=== PATIENT | male | born 1960 | race Caucasian/White ===

== ENCOUNTER → 2018-03-26 | Outpatient (CLI) | payer MEDICARE | END | disposition home or self-care (01) | LOC: RADUSWWP 12:58 | PROVIDERS: ATTEND Family Medicine | DX: I73.9 Peripheral vascular disease, unspecified (principal) | CPT/HCPCS: 93923 ==

== ENCOUNTER 2019-03-25 11:50 | Emergency (ER) | payer MEDICARE ==
[2019-03-25] MEDS ORDERED: SODIUM CHLORIDE 0.9% 500 ML 500 ML IV STA (12:28)
--- NOTE | 2019-03-25 12:42 | ED ---
Weakness HPI <YonathanHenrik - Last Filed: 03/25/19 15:41> - General Source: patient, RN notes reviewed Mode of arrival: ambulatory Limitations: no limitations <Trevor Reynoso - Last Filed: 03/25/19 19:35> - General Chief complaint: Weakness Stated complaint: pneumonia Time Seen by Provider: 03/25/19 11:59 - History of Present Illness Initial comments: This a 59-year-old male presents emergency Department with chief complaint of denies weakness, shortness of breath. Patient states he has not felt well over last several weeks. Patient has been to his PCP several times has been placed on antibiotics 3 times and Lasix. Patient states he notices a gurgling sound especially when he lays down, he gets increasing shortness of breath. Patient had approximately 20 pound weight gain or 11 days. States is very dyspneic when he is walking. Patient states the Lasix did help but he states he still feels worse now. Patient states he does drink a couple beers daily but does not abuse alcohol. Does not have any excessive Tylenol use. Patient denies any history of liver disease. Patient denies any prior kidney dysfunction. Patient is having trouble bypass aortic graft. Patient states she's had on-and-off fevers. Patient states that currently is taking Levaquin. Patient states is another Xanax prior to that and he also had some injections. (Trevor Reynoso) - Related Data Home Medications Medication Instructions Recorded Confirmed ALPRAZolam [Xanax] 1 mg PO BID 03/25/19 03/25/19 Albuterol Sulfate [Ventolin HFA] 2 puff INHALATION RT-Q4H 03/25/19 03/25/19 Amoxicillin 875 mg PO DIRECTED 03/25/19 03/25/19 Aspirin 81 mg PO DAILY 03/25/19 03/25/19 Atorvastatin [Lipitor] 40 mg PO HS 03/25/19 03/25/19 Budesonide-Formot 160-4.5 Mcg 2 puff INHALATION RT-BID 03/25/19 03/25/19 [Symbicort 160-4.5 Mcg Inhaler] Cholecalciferol [Vitamin D3 (25 1,000 unit PO DAILY 03/25/19 03/25/19 Mcg = 1000 Iu)] Depo-Medrol 160 mg IM ONCE 03/25/19 03/25/19 Doxycycline [Vibramycin] 100 mg PO DIRECTED 03/25/19 03/25/19 Fluconazole [Diflucan] 150 mg PO ONCE 03/25/19 03/25/19 Fluticasone/Umeclidin/Vilanter 1 puff INHALATION RT-DAILY 03/25/19 03/25/19 [Trelegy Ellipta 100-62.5-25] Furosemide [Lasix] 40 mg PO DIRECTED 03/25/19 03/25/19 Glimepiride [Amaryl] 2 mg PO DAILY 03/25/19 03/25/19 Hydrocodone/Acetaminophen [[place] 1 tab PO Q6H PRN 03/25/19 03/25/19 10-325] Levofloxacin [Levaquin] 500 mg PO DIRECTED 03/25/19 03/25/19 Multivitamins, Thera [Multivitamin 1 tab PO DAILY 03/25/19 03/25/19 (formulary)] Nitroglycerin Sl Tabs [Nitrostat] 0.4 mg SUBLINGUAL Q5M PRN 03/25/19 03/25/19 Nystatin 100,000Unit/gm Cream 1 applic TOPICAL BID 03/25/19 03/25/19 [Mycostatin Cream] [place]-3 Fatty Acids/Fish Oil [Fish 1 cap PO DAILY 03/25/19 03/25/19 Oil 1,000 mg Softgel] Omeprazole [PriLOSEC] 20 mg PO DAILY 03/25/19 03/25/19 Promethazine/Dextromethorphan 5 ml PO Q8H 03/25/19 03/25/19 [Promethazine-Dm Syrup] Sildenafil Citrate 100 mg PO DAILY PRN 03/25/19 03/25/19 Testosterone Cypionate 400 mg IM Q14D 03/25/19 03/25/19 [Depo-Testosterone] Vitamin B 12 100 Mcg 100 mcg PO DAILY 03/25/19 03/25/19 cefTRIAXone [Rocephin] 1 gm IM ONCE 03/25/19 03/25/19 metFORMIN HCL [Glucophage] 500 mg PO BID 03/25/19 03/25/19 Allergies Allergy/AdvReac Type Severity Reaction Status Date / Time No Known Allergies Allergy Verified 03/25/19 13:38 Review of Systems ROS Other: All systems not noted in ROS Statement are negative. <Henrik Mcmanus - Last Filed: 03/25/19 15:41> ROS Other: All systems not noted in ROS Statement are negative. <Trevor Reynoso - Last Filed: 03/25/19 19:35> ROS Statement: Those systems with pertinent positive or pertinent negative responses have been documented in the HPI. Past Medical History Past Medical History: Heart Failure, Diabetes Mellitus, Hyperlipidemia, Pneumonia Additional Past Medical History / Comment(s): diverticulous History of Any Multi-Drug Resistant Organisms: None Reported Past Surgical History: Coronary Bypass/CABG, Orthopedic Surgery Past Psychological History: No Psychological Hx Reported Smoking Status: Former smoker Past Alcohol Use History: Occasional Past Drug Use History: None Reported <Trevor Reynoso - Last Filed: 03/25/19 19:35> General Exam Limitations: no limitations General appearance: alert, in no apparent distress Head exam: Present: atraumatic, normocephalic, normal inspection Eye exam: Present: normal appearance, PERRL, EOMI. Absent: scleral icterus, conjunctival injection, periorbital swelling ENT exam: Present: normal exam, normal oropharynx, mucous membranes moist Neck exam: Present: normal inspection, full ROM. Absent: tenderness, meningismus, lymphadenopathy Respiratory exam: Present: rales (Bilateral bases noted). Absent: normal lung sounds bilaterally, respiratory distress, wheezes, rhonchi, stridor Cardiovascular Exam: Present: normal rhythm, tachycardia, normal heart sounds. Absent: systolic murmur, diastolic murmur, rubs, gallop, clicks GI/Abdominal exam: Present: soft, normal bowel sounds. Absent: distended, tenderness, guarding, rebound, rigid Extremities exam: Absent: pedal edema Back exam: Absent: CVA tenderness (R), CVA tenderness (L) Neurological exam: Present: alert, oriented X3, CN II-XII intact Skin exam: Present: warm, dry, intact, normal color. Absent: rash <Trevor Reynoos - Last Filed: 03/25/19 19:35> Course <Henrik Mcmanus - Last Filed: 03/25/19 15:41> Vital Signs 03/25/19 03/25/19 03/25/19 11:51 12:15 13:10 Temperature 98.7 F 97.5 F L Pulse Rate 115 H 112 H Respiratory 18 20 18 Rate Blood Pressure 107/67 125/96 O2 Sat by Pulse 97 96 Oximetry 03/25/19 03/25/19 14:30 16:50 Temperature 97.9 F 97.0 F L Pulse Rate 110 H 112 H Respiratory 22 20 Rate Blood Pressure 119/91 116/97 O2 Sat by Pulse 97 97 Oximetry - Reevaluation(s) Reevaluation #1: 03/25/19 15:41 PA supervision: I did a personal evaluation this patient [id number] patient does have evidence of acute liver failure of unknown etiology at this time. Did discuss the case with Dr. Walker who did recommend transfer to [facility] in [place]. I did discuss this with the patient family member. They're in agreement with this. Patient does have evidence of feeling fatigued and tired recently. He denies any excess Tylenol intake he drinks one or 2 beers a day he states no recent illnesses he was being treated. He does have no tenderness on palpation of the abdomen those liver does seem somewhat enlarged. I do agree with the assessment and plan. (Henrik Mcmanus) EKG Findings - EKG Comments: EKG Findings:: EKG performed at 12:44 sinus tachycardia with rate of 113 ND 158 QRS 102 QT/QTC 334/458 <Trevor Reynoso - Last Filed: 03/25/19 19:35> Medical Decision Making - Lab Data Result diagrams: 03/25/19 12:11 03/25/19 12:11 <Henrik Mcmanus - Last Filed: 03/25/19 15:41> - Lab Data Result diagrams: 03/25/19 12:11 03/25/19 12:11 <Trevor Reynoso - Last Filed: 03/25/19 19:35> - Medical Decision Making Patient's case discussed with [facility] who accepts transfer (Trevor Reynoso) - Lab Data Lab Results 03/25/19 03/25/19 03/25/19 Range/Units 12:11 12:11 12:11 WBC 10.1 (3.8-10.6) k/uL RBC 4.61 (4.30-5.90) m/uL Hgb 12.2 L (13.0-17.5) gm/dL Hct 39.1 (39.0-53.0) % MCV 84.7 (80.0-100.0) fL MCH 26.5 (25.0-35.0) pg MCHC 31.3 (31.0-37.0) g/dL RDW 15.6 H (11.5-15.5) % Plt Count 132 L (150-450) k/uL Neutrophils % 84 % Lymphocytes % 6 % Monocytes % 8 % Eosinophils % 0 % Basophils % 0 % Neutrophils # 8.5 H (1.3-7.7) k/uL Lymphocytes # 0.6 L (1.0-4.8) k/uL Monocytes # 0.8 (0-1.0) k/uL Eosinophils # 0.0 (0-0.7) k/uL Basophils # 0.0 (0-0.2) k/uL Manual Slide Review Performed Large Platelets Present Hypochromasia Moderate Poikilocytosis Slight PT (9.0-12.0) sec INR (<1.2) APTT (22.0-30.0) sec D-Dimer (<0.60) mg/L FEU Sodium 126 L (137-145) mmol/L Potassium 5.1 (3.5-5.1) mmol/L Chloride 89 L (98-107) mmol/L Carbon Dioxide 23 (22-30) mmol/L Anion Gap 14 mmol/L BUN 37 H (9-20) mg/dL Creatinine 0.82 (0.66-1.25) mg/dL Est GFR (CKD-EPI)AfAm >90 (>60 ml/min/1.73 sqM) Est GFR (CKD-EPI)NonAf >90 (>60 ml/min/1.73 sqM) Glucose 160 H (74-99) mg/dL Lactic Ac Sepsis Rflx Plasma Lactic Acid Yogi 3.6 H* (0.7-2.0) mmol/L Calcium 9.0 (8.4-10.2) mg/dL Total Bilirubin 2.0 H (0.2-1.3) mg/dL AST 7677 H (17-59) U/L ALT >3750 H (4-49) U/L Alkaline Phosphatase 68 (38-126) U/L Ammonia (<30) umol/L Troponin I (0.000-0.034) ng/mL NT-Pro-B Natriuret Pep pg/mL Total Protein 6.8 (6.3-8.2) g/dL Albumin 4.1 (3.5-5.0) g/dL Lipase (23-300) U/L Urine Color Urine Appearance (Clear) Urine pH (5.0-8.0) Ur Specific [place] (1.001-1.035) Urine Protein (Negative) Ur Protein Confirm Urine Glucose (UA) (Negative) Urine Ketones (Negative) Urine Blood (Negative) Urine Nitrite (Negative) Urine Bilirubin (Negative) Urine Urobilinogen (<2.0) mg/dL Ur Leukocyte Esterase (Negative) Urine RBC (0-5) /hpf Urine WBC (0-5) /hpf Amorphous Sediment (None) /hpf Hyaline Casts (0-2) /lpf Urine Mucus (None) /hpf Acetaminophen ug/mL Serum Alcohol mg/dL Hepatitis A IgM Ab 03/25/19 03/25/19 03/25/19 Range/Units 12:11 12:11 12:11 WBC (3.8-10.6) k/uL RBC (4.30-5.90) m/uL Hgb (13.0-17.5) gm/dL Hct (39.0-53.0) % MCV (80.0-100.0) fL MCH (25.0-35.0) pg MCHC (31.0-37.0) g/dL RDW (11.5-15.5) % Plt Count (150-450) k/uL Neutrophils % % Lymphocytes % % Monocytes % % Eosinophils % % Basophils % % Neutrophils # (1.3-7.7) k/uL Lymphocytes # (1.0-4.8) k/uL Monocytes # (0-1.0) k/uL Eosinophils # (0-0.7) k/uL Basophils # (0-0.2) k/uL Manual Slide Review Large Platelets Hypochromasia Poikilocytosis PT 27.8 H (9.0-12.0) sec INR 2.9 H (<1.2) APTT 27.9 (22.0-30.0) sec D-Dimer 5.61 H (<0.60) mg/L FEU Sodium (137-145) mmol/L Potassium (3.5-5.1) mmol/L Chloride (98-107) mmol/L Carbon Dioxide (22-30) mmol/L Anion Gap mmol/L BUN (9-20) mg/dL Creatinine (0.66-1.25) mg/dL Est GFR (CKD-EPI)AfAm (>60 ml/min/1.73 sqM) Est GFR (CKD-EPI)NonAf (>60 ml/min/1.73 sqM) Glucose (74-99) mg/dL Lactic Ac Sepsis Rflx Plasma Lactic Acid Yogi (0.7-2.0) mmol/L Calcium (8.4-10.2) mg/dL Total Bilirubin (0.2-1.3) mg/dL AST (17-59) U/L ALT (4-49) U/L Alkaline Phosphatase (38-126) U/L Ammonia (<30) umol/L Troponin I 0.112 H* (0.000-0.034) ng/mL NT-Pro-B Natriuret Pep 3080 pg/mL Total Protein (6.3-8.2) g/dL Albumin (3.5-5.0) g/dL Lipase (23-300) U/L Urine Color Urine Appearance (Clear) Urine pH (5.0-8.0) Ur Specific [place] (1.001-1.035) Urine Protein (Negative) Ur Protein Confirm Urine Glucose (UA) (Negative) Urine Ketones (Negative) Urine Blood (Negative) Urine Nitrite (Negative) Urine Bilirubin (Negative) Urine Urobilinogen (<2.0) mg/dL Ur Leukocyte Esterase (Negative) Urine RBC (0-5) /hpf Urine WBC (0-5) /hpf Amorphous Sediment (None) /hpf Hyaline Casts (0-2) /lpf Urine Mucus (None) /hpf Acetaminophen ug/mL Serum Alcohol mg/dL Hepatitis A IgM Ab 03/25/19 03/25/19 03/25/19 Range/Units 12:37 12:37 13:16 WBC (3.8-10.6) k/uL RBC (4.30-5.90) m/uL Hgb (13.0-17.5) gm/dL Hct (39.0-53.0) % MCV (80.0-100.0) fL MCH (25.0-35.0) pg MCHC (31.0-37.0) g/dL RDW (11.5-15.5) % Plt Count (150-450) k/uL Neutrophils % % Lymphocytes % % Monocytes % % Eosinophils % % Basophils % % Neutrophils # (1.3-7.7) k/uL Lymphocytes # (1.0-4.8) k/uL Monocytes # (0-1.0) k/uL Eosinophils # (0-0.7) k/uL Basophils # (0-0.2) k/uL Manual Slide Review Large Platelets Hypochromasia Poikilocytosis PT (9.0-12.0) sec INR (<1.2) APTT (22.0-30.0) sec D-Dimer (<0.60) mg/L FEU Sodium (137-145) mmol/L Potassium (3.5-5.1) mmol/L Chloride (98-107) mmol/L Carbon Dioxide (22-30) mmol/L Anion Gap mmol/L BUN (9-20) mg/dL Creatinine (0.66-1.25) mg/dL Est GFR (CKD-EPI)AfAm (>60 ml/min/1.73 sqM) Est GFR (CKD-EPI)NonAf (>60 ml/min/1.73 sqM) Glucose (74-99) mg/dL Lactic Ac Sepsis Rflx Y Plasma Lactic Acid Yogi (0.7-2.0) mmol/L Calcium (8.4-10.2) mg/dL Total Bilirubin (0.2-1.3) mg/dL AST (17-59) U/L ALT (4-49) U/L Alkaline Phosphatase (38-126) U/L Ammonia 41 H (<30) umol/L Troponin I (0.000-0.034) ng/mL NT-Pro-B Natriuret Pep pg/mL Total Protein (6.3-8.2) g/dL Albumin (3.5-5.0) g/dL Lipase (23-300) U/L Urine Color Urine Appearance (Clear) Urine pH (5.0-8.0) Ur Specific [place] (1.001-1.035) Urine Protein (Negative) Ur Protein Confirm Urine Glucose (UA) (Negative) Urine Ketones (Negative) Urine Blood (Negative) Urine Nitrite (Negative) Urine Bilirubin (Negative) Urine Urobilinogen (<2.0) mg/dL Ur Leukocyte Esterase (Negative) Urine RBC (0-5) /hpf Urine WBC (0-5) /hpf Amorphous Sediment (None) /hpf Hyaline Casts (0-2) /lpf Urine Mucus (None) /hpf Acetaminophen <10.0 ug/mL Serum Alcohol mg/dL Hepatitis A IgM Ab 03/25/19 03/25/19 03/25/19 Range/Units 13:51 14:08 14:08 WBC (3.8-10.6) k/uL RBC (4.30-5.90) m/uL Hgb (13.0-17.5) gm/dL Hct (39.0-53.0) % MCV (80.0-100.0) fL MCH (25.0-35.0) pg MCHC (31.0-37.0) g/dL RDW (11.5-15.5) % Plt Count (150-450) k/uL Neutrophils % % Lymphocytes % % Monocytes % % Eosinophils % % Basophils % % Neutrophils # (1.3-7.7) k/uL Lymphocytes # (1.0-4.8) k/uL Monocytes # (0-1.0) k/uL Eosinophils # (0-0.7) k/uL Basophils # (0-0.2) k/uL Manual Slide Review Large Platelets Hypochromasia Poikilocytosis PT (9.0-12.0) sec INR (<1.2) APTT (22.0-30.0) sec D-Dimer (<0.60) mg/L FEU Sodium (137-145) mmol/L Potassium (3.5-5.1) mmol/L Chloride (98-107) mmol/L Carbon Dioxide (22-30) mmol/L Anion Gap mmol/L BUN (9-20) mg/dL Creatinine (0.66-1.25) mg/dL Est GFR (CKD-EPI)AfAm (>60 ml/min/1.73 sqM) Est GFR (CKD-EPI)NonAf (>60 ml/min/1.73 sqM) Glucose (74-99) mg/dL Lactic Ac Sepsis Rflx Plasma Lactic Acid Yogi (0.7-2.0) mmol/L Calcium (8.4-10.2) mg/dL Total Bilirubin (0.2-1.3) mg/dL AST (17-59) U/L ALT (4-49) U/L Alkaline Phosphatase (38-126) U/L Ammonia (<30) umol/L Troponin I (0.000-0.034) ng/mL NT-Pro-B Natriuret Pep pg/mL Total Protein (6.3-8.2) g/dL Albumin (3.5-5.0) g/dL Lipase (23-300) U/L Urine Color [place] Urine Appearance Clear (Clear) Urine pH 6.0 (5.0-8.0) Ur Specific [place] 1.020 (1.001-1.035) Urine Protein 1+ H (Negative) Ur Protein Confirm [employer] Urine Glucose (UA) 3+ H (Negative) Urine Ketones Negative (Negative) Urine Blood Negative (Negative) Urine Nitrite Negative (Negative) Urine Bilirubin Negative (Negative) Urine Urobilinogen 2.0 (<2.0) mg/dL Ur Leukocyte Esterase Negative (Negative) Urine RBC 1 (0-5) /hpf Urine WBC 1 (0-5) /hpf Amorphous Sediment Rare H (None) /hpf Hyaline Casts 16 H (0-2) /lpf Urine Mucus Occasional H (None) /hpf Acetaminophen ug/mL Serum Alcohol <10 mg/dL Hepatitis A IgM Ab NEGATIVE 03/25/19 Range/Units 14:08 WBC (3.8-10.6) k/uL RBC (4.30-5.90) m/uL Hgb (13.0-17.5) gm/dL Hct (39.0-53.0) % MCV (80.0-100.0) fL MCH (25.0-35.0) pg MCHC (31.0-37.0) g/dL RDW (11.5-15.5) % Plt Count (150-450) k/uL Neutrophils % % Lymphocytes % % Monocytes % % Eosinophils % % Basophils % % Neutrophils # (1.3-7.7) k/uL Lymphocytes # (1.0-4.8) k/uL Monocytes # (0-1.0) k/uL Eosinophils # (0-0.7) k/uL Basophils # (0-0.2) k/uL Manual Slide Review Large Platelets Hypochromasia Poikilocytosis PT (9.0-12.0) sec INR (<1.2) APTT (22.0-30.0) sec D-Dimer (<0.60) mg/L FEU Sodium (137-145) mmol/L Potassium (3.5-5.1) mmol/L Chloride (98-107) mmol/L Carbon Dioxide (22-30) mmol/L Anion Gap mmol/L BUN (9-20) mg/dL Creatinine (0.66-1.25) mg/dL Est GFR (CKD-EPI)AfAm (>60 ml/min/1.73 sqM) Est GFR (CKD-EPI)NonAf (>60 ml/min/1.73 sqM) Glucose (74-99) mg/dL Lactic Ac Sepsis Rflx Plasma Lactic Acid Yogi (0.7-2.0) mmol/L Calcium (8.4-10.2) mg/dL Total Bilirubin (0.2-1.3) mg/dL AST (17-59) U/L ALT (4-49) U/L Alkaline Phosphatase (38-126) U/L Ammonia (<30) umol/L Troponin I (0.000-0.034) ng/mL NT-Pro-B Natriuret Pep pg/mL Total Protein (6.3-8.2) g/dL Albumin (3.5-5.0) g/dL Lipase 195 (23-300) U/L Urine Color Urine Appearance (Clear) Urine pH (5.0-8.0) Ur Specific [place] (1.001-1.035) Urine Protein (Negative) Ur Protein Confirm Urine Glucose (UA) (Negative) Urine Ketones (Negative) Urine Blood (Negative) Urine Nitrite (Negative) Urine Bilirubin (Negative) Urine Urobilinogen (<2.0) mg/dL Ur Leukocyte Esterase (Negative) Urine RBC (0-5) /hpf Urine WBC (0-5) /hpf Amorphous Sediment (None) /hpf Hyaline Casts (0-2) /lpf Urine Mucus (None) /hpf Acetaminophen ug/mL Serum Alcohol mg/dL Hepatitis A IgM Ab Critical Care Time Critical Care Time: Yes Total Critical Care Time: 35 <Trevor Reynoso - Last Filed: 03/25/19 19:35> Critical Care Time: 35 minutes of critical. He'll use initially evaluated in past medical history, medications. Patient found to be acute liver failure with an INR of 2.9, AST ALT very elevated, bili was 2.0 monos slightly elevated at 41. Patient d-dimer was elevated at 5 CT is negative for PE. There is some pleural effusion, questionable infiltrate. Patient was given Rocephin at this time. Patient BNP was elevated at 3000 along with this small pleural effusions. Patient does not have any extremity swelling this time. Case discussed with GI physician recommends patient transferred to [facility]. Case discussed with ICU chaser tar at [facility] who accepts transfer. (Trevor Reynoso) Disposition <Henrik Mcmanus - Last Filed: 03/25/19 15:41> Time of Disposition: 16:27 - Out of Hospital Transfer - Req. Specs Out of Hospital Transfer - Requested Specifics: Medical ICU ([facility]) <Trevor Reynoso - Last Filed: 03/25/19 19:35> Clinical Impression: Acute liver failure, Bilateral pleural effusion, Pneumonia, Lactic acidosis, Generalized weakness, Elevated troponin Disposition: OTHER INSTITUTION NOT DEFINED Condition: Serious Referrals: Humberto Paez MD [Primary Care Provider] - 1-2 days
[2019-03-25 13:02] LABS: African American GFR (CKD) >90 (>60 ml/min/1.73 sqM); Albumin 4.1 g/dL (3.5-5.0); Alkaline Phosphatase 68 U/L (38-126); Anion Gap 14 mmol/L; Blood Urea Nitrogen 37 mg/dL (9-20); Carbon Dioxide 23 mmol/L (22-30); Chloride 89 mmol/L (98-107); Glucose 160 mg/dL (74-99); Non-African American GFR(CKD) >90 (>60 ml/min/1.73 sqM); Sodium 126 mmol/L (137-145); Total Protein 6.8 g/dL (6.3-8.2)
[2019-03-25 13:09] LABS: Potassium 5.1 mmol/L (3.5-5.1)
--- NOTE | 2019-03-25 13:11 | XR ---
EXAMINATION TYPE: XR chest 2V DATE OF EXAM: 03/25/2019 COMPARISON: 05/18/2012 HISTORY: 59-year-old male with weakness TECHNIQUE: PA and lateral views FINDINGS: Heart is mild to moderately enlarged. Endovascular stent graft of the distal arch and upper descendin g thoracic aorta. Focal left basilar opacity. No significant effusion on the lateral view. IMPRESSION: 1. Mild to moderate cardiomegaly. Indwelling endovascular stent graft of the distal arch and upper de scending thoracic aorta. 2. Focal peripheral left basilar opacity, possible pneumonia.
[2019-03-25 13:13] LABS: INR 2.9 (<1.2); Partial Thromboplastin Time 27.9 sec (22.0-30.0); Prothrombin Time 27.8 sec (9.0-12.0)
[2019-03-25 13:24] LABS: ALT >3750 U/L (4-49); D-Dimer 5.61 mg/L FEU (<0.60)
[2019-03-25 13:27] LABS: Basophils % (A) 0 %; Eosinophils % (A) 0 %; HCT 39.1 % (39.0-53.0); HGB 12.2 gm/dL (13.0-17.5); Hypochromasia Moderate; Lymphocytes # (A) 0.6 k/uL (1.0-4.8); Lymphocytes % (A) 6 %; MCH 26.5 pg (25.0-35.0); MCHC 31.3 g/dL (31.0-37.0); MCV 84.7 fL (80.0-100.0); Mean Platelet Volume 12.7; Monocytes # (A) 0.8 k/uL (0-1.0); Monocytes % (A) 8 %; Neutrophils # (A) 8.5 k/uL (1.3-7.7); Neutrophils % (A) 84 %; Platelet Count 132 k/uL (150-450); Poikilocytosis Slight; RBC 4.61 m/uL (4.30-5.90); RDW 15.6 % (11.5-15.5); WBC 10.1 k/uL (3.8-10.6)
[2019-03-25 13:34] LABS: AST 7677 U/L (17-59)
[2019-03-25 13:51] LABS: Large Platelets Present
--- NOTE | 2019-03-25 13:54 | CT ---
EXAMINATION TYPE: CT chest angio for PE DATE OF EXAM: 03/25/2019 COMPARISON: None HISTORY: shortness of breath, weakness CT DLP: 501.8 mGycm CONTRAST: CT chest with contrast and 3D reconstruction with MIP imaging is performed with IV Contrast, patient injected with 100 mL of Isovue 370. Contrast-enhanced CT of the chest was performed through the course of the pulmonary arteries with loretta g and mediastinal window settings submitted. 3D reconstruction with MIP imaging was also performed. PULMONARY ARTERIES: The pulmonary arteries and their major tributaries are patent. I do not see rajani dence for sizable filling defect to suggest pulmonary embolic process. LUNGS: Small bilateral effusions. Left basilar opacity may reflect atelectasis and/or infiltrate. Cor relate clinically. There is evidence of cardiomegaly. MEDIASTINUM: Stent noted of the distal aortic arch and descending thoracic aorta. No evidence for ane urysm. There is evidence of cardiomegaly. HILAR STRUCTURES: No evidence for mass. No hilar lymph nodes greater than 1 cm. UPPER ABDOMEN: No significant abnormality is seen. IMPRESSION: 1. No evidence for Pulmonary embolism at this time. 2. Left basilar opacity may reflect atelectasis and/or infiltrate. Small bilateral pleural effusions right greater than left. Cardiomegaly.
[2019-03-25] MEDS ORDERED: SODIUM CHLORIDE 0.9% 1,000 ML IV ONE (14:22)
[2019-03-25] MEDS ORDERED: cefTRIAXone IN SWFI 1,000 MG/10 ML SYRINGE IVP STA (14:22)
[2019-03-25 14:39] LABS: Amorphous Sediment,Urine Rare /hpf; Hyaline Casts,Urine 16 /lpf (0-2); Mucus,Urine Occasional /hpf; RBC,Urine 1 /hpf (0-5); WBC,Urine 1 /hpf (0-5)
[2019-03-25 14:41] LABS: Hepatitis A Antibody IgM NEGATIVE
[2019-03-25 14:44] LABS: Appearance,Urine Clear (Clear); Color,Urine Amber; Protein,Urine 1+ (Negative)
[2019-03-25 14:45] LABS: Bilirubin,Urine Negative (Negative); Blood,Urine Negative (Negative); Glucose,Urine (UA) 3+ (Negative); Ketones,Urine Negative (Negative)
[2019-03-25 14:46] LABS: Leukocyte Esterase,Urine Negative (Negative); Nitrite,Urine Negative (Negative)
[2019-03-25 16:54] VITALS: BP 116/97; PULSE 112; RESP 20; TEMP 97
[2019-03-25 21:26] LABS: Hepatitis B Core IgM Non-Reactive (Non-Reactive); Hepatitis B Surface Antigen Non-Reactive (Non-Reactive); Hepatitis C IgG Antibody Non-Reactive (Non-Reactive)
== END 2019-03-25 17:26 | disposition short-term general hospital (02) ==
LOC: EC 11:50
DX: J18.9 Pneumonia, unspecified organism (principal); J90 Pleural effusion, not elsewhere classified; K72.00 Acute and subacute hepatic failure without coma; E87.2 Acidosis; R79.89 Other specified abnormal findings of blood chemistry; R79.1 Abnormal coagulation profile; R00.0 Tachycardia, unspecified; R53.1 Weakness; I50.9 Heart failure, unspecified; E11.9 Type 2 diabetes mellitus without complications; E78.5 Hyperlipidemia, unspecified; Z87.891 Personal history of nicotine dependence; Z79.51 Long term (current) use of inhaled steroids; Z79.52 Long term (current) use of systemic steroids; Z79.82 Long term (current) use of aspirin; Z79.84 Long term (current) use of oral hypoglycemic drugs; Z79.890 Hormone replacement therapy; Z79.899 Other long term (current) drug therapy; Z87.19 Personal history of other diseases of the digestive system; Z95.1 Presence of aortocoronary bypass graft
CPT/HCPCS: 99291 ×2; 96374 ×2; 96361 ×2; 36415; 93005; 85379; 83880; 80053; 80074; 82140; 83605; 83690; 84484; 85025; 85610; 85730; 81001; 87040; 71046; 71275; G0480 ×2; J0696; Q9967; 80320; 80329